=== PATIENT | male | born 1975 | race American Indian/Alaskan Native ===

== ENCOUNTER 2018-05-06 18:37 | Emergency (ER) | payer MEDICARE ==
[2018-05-06 18:50] VITALS: BP 155/94
[2018-05-06] MEDS ORDERED: TYLENOL #3 PO ONE (20:53)
--- NOTE | 2018-05-06 20:54 | Emergency Department Report ---
ED ENT HPI - General Chief complaint: Dental/Oral Stated complaint: TOOTHACHE Time Seen by Provider: 05/06/18 20:50 Source: patient Mode of arrival: Ambulatory Limitations: No Limitations - History of Present Illness Initial comments: 42-year-old male comes in reporting dental pain on the left side. Patient reports he cracked a tooth last year and now only started hurting on . She reports is been taking ibuprofen for pain which she reports has not helped. As I looked into the [facility] prescription I noticed the patient has had a prescription for tramadol look on May 04. Which was 2 days ago. Patient points has a headache with nausea no vomiting decreased appetite. Last time he had ibuprofen was 4:30 PM. MD complaint: tooth pain -: days(s) (5) Location: tooth # (20) Severity: severe Severity scale (0 -10): 10 Quality: stabbing, aching, sharp Consistency: constant Improves with: other medication Worsens with: none Associated Symptoms: toothache, other (jacob) - Related Data Previous Rx's Medication Instructions Recorded Last Taken Type Ibuprofen [Motrin 600 MG tab] 600 mg PO Q8H PRN #30 tablet 05/06/18 Unknown Rx Penicillin Vk [Veetids TAB] 250 mg PO QID #40 tablet 05/06/18 Unknown Rx Allergies Allergy/AdvReac Type Severity Reaction Status Date / Time No Known Allergies Allergy Unverified 05/06/18 18:49 ED Dental HPI - General Chief complaint: Dental/Oral Stated complaint: TOOTHACHE Time Seen by Provider: 05/06/18 20:50 Source: patient Mode of arrival: Ambulatory Limitations: No Limitations - Related Data Previous Rx's Medication Instructions Recorded Last Taken Type Ibuprofen [Motrin 600 MG tab] 600 mg PO Q8H PRN #30 tablet 05/06/18 Unknown Rx Penicillin Vk [Veetids TAB] 250 mg PO QID #40 tablet 05/06/18 Unknown Rx Allergies Allergy/AdvReac Type Severity Reaction Status Date / Time No Known Allergies Allergy Unverified 05/06/18 18:49 ED Review of Systems ROS: Stated complaint: TOOTHACHE Other details as noted in HPI ENT: dental pain Neurological: headache ED Past Medical Hx - Past Medical History Previous Medical History?: No Hx Arthritis: Yes (neck) - Surgical History Past Surgical History?: Yes Additional Surgical History: left knee - Social History Smoking Status: Current Every Day Smoker Substance Use Type: Alcohol - Medications Home Medications: Home Medications Medication Instructions Recorded Confirmed Last Taken Type Ibuprofen [Motrin 600 MG tab] 600 mg PO Q8H PRN #30 tablet 05/06/18 Unknown Rx Penicillin Vk [Veetids TAB] 250 mg PO QID #40 tablet 05/06/18 Unknown Rx ED Physical Exam - General Limitations: No Limitations General appearance: alert, in no apparent distress - Head Head exam: Present: atraumatic, normocephalic - Eye Eye exam: Present: normal appearance - ENT ENT exam: Present: mucous membranes moist - Expanded ENT Exam Expanded Teeth exam: Present: dental caries, dental tenderness # (20), other (poor dental ) - Neck Neck exam: Present: normal inspection, full ROM. Absent: tenderness - Respiratory Respiratory exam: Present: normal lung sounds bilaterally. Absent: respiratory distress - Cardiovascular Cardiovascular Exam: Present: regular rate, normal rhythm. Absent: systolic murmur, diastolic murmur, rubs, gallop - Extremities Exam Extremities exam: Present: full ROM - Neurological Exam Neurological exam: Present: alert, oriented X3 - Expanded Neurological Exam Expanded Cranial nerves: EOM's Intact: Normal, Gag Reflex: Normal, Tongue Deviation: Normal, Nystagmus: Normal Best Eye Response (Harry): (4) open spontaneously Best Motor Response (Harry): (6) obeys commands Best Verbal Response (Dennison): (2) incomprehsible sounds Dennison Total: 12 - Psychiatric Psychiatric exam: Present: normal affect, normal mood - Skin Skin exam: Present: warm, dry, intact, normal color. Absent: rash ED Course Vital Signs 05/06/18 18:45 Temperature 98.7 F Pulse Rate 108 H Respiratory 20 Rate Blood Pressure 155/94 O2 Sat by Pulse 98 Oximetry ED Medical Decision Making - Medical Decision Making Patient has been evaluated but this provider fast track. Tylenol No. 3 given for pain management since patient's had ibuprofen at 4:30. Patient be discharged home on ibuprofen and penicillin Refer patient to dentists Critical care attestation.: If time is entered above; I have spent that time in minutes in the direct care of this critically ill patient, excluding procedure time. ED Disposition Clinical Impression: Pain due to dental caries Disposition: DC- TO HOME OR SELFCARE Is pt being admited?: No Does the pt Need Aspirin: No Condition: Stable Instructions: Dental Caries (ED), Toothache (ED) Additional Instructions: Please complete antibiotics as prescribed. Take ibuprofen for pain management. Follow up with a dentist I have listed several below as well as giving her a handout. Prescriptions: Ibuprofen [Motrin 600 MG tab] 600 mg PO Q8H PRN #30 tablet PRN Reason: Pain Penicillin Vk [Veetids TAB] 250 mg PO QID #40 tablet Referrals: PRIMARY CARE, [Primary Care Provider] - 3-5 Days [facility] [Outside] - 3-5 Days [facility] [Outside] - 3-5 Days [facility] [Outside] - 3-5 Days [facility] [Provider Group] - 3-5 Days Forms: Work/School Release Form(ED)
== END 2018-05-06 21:35 | disposition home or self-care (01) ==
LOC: ED 18:37
DX: K02.9 Dental caries, unspecified (principal); M19.90 Unspecified osteoarthritis, unspecified site; F17.200 Nicotine dependence, unspecified, uncomplicated; F10.929 Alcohol use, unspecified with intoxication, unspecified
CPT/HCPCS: 99282